=== PATIENT | female | born 1940 | race Hispanic/Latino ===

== ENCOUNTER 2018-01-03 14:45 | Observation (INO) | payer MEDICARE ==
[~2018-01-03] VITALS: Ht 158.8 cm; Wt 54.8 kg
[2018-01-03 16:25] VITALS: BP 181/60
[2018-01-03 16:39] LABS: EOSINOPHILS % (AUTO) 0.6 % (0.0-8.0); HEMATOCRIT 37.6 % (36-48); LYMPHOCYTES % (AUTO) 18.4 % (21.0-51.0); MEAN CORPUSCULAR HEMOGLOBIN 32.5 pg (27.0-33.0); MEAN CORPUSCULAR HGB CONC 35.3 g/dL (32.0-36.0); MONOCYTES % (AUTO) 7.6 % (3.0-13.0); NEUTROPHILS % (AUTO) 72.4 % (40.0-77.0); NUCLEATED RED BLOOD CELLS 0.1 % (0.0-0.19); PLATELET COUNT (AUTO) 414 K/uL (130-400); RED BLOOD CELL COUNT(AUTO) 4.09 MIL/uL (4.00-5.50); RED CELL DISTRIBUTION WIDTH 13.1 % (11.0-15.5)
[2018-01-03] MEDS ORDERED: METO25TA6 PO (17:45)
[2018-01-03] MEDS ORDERED: GLAUCOMA DROPS OU (17:45)
[2018-01-03] MEDS ORDERED: LEVO50TA11 PO (17:45)
[2018-01-03] MEDS ORDERED: VALS160T29 PO (17:45)
[2018-01-03] MEDS ORDERED: AMLO5TAB2 PO (17:45)
[2018-01-03] MEDS ORDERED: AMOX1TAB16 PO (17:45)
[2018-01-03] MEDS ORDERED: CLINDAMYCIN 600 MG/D5% WATER 50 ML IV SCH (18:15)
[2018-01-03] MEDS ORDERED: DEXTROSE 5 %-0.45 % NACL 1,000 ML IV SCH (18:15)
[2018-01-03] MEDS ORDERED: LACTATED RINGERS 1000ML 1,000 ML IV SCH (18:15)
[2018-01-04] VITALS (24 sets, daily range): BP systolic 111–146; BP diastolic 45–75
[2018-01-04] MEDS: CEFAZOLIN SODIUM 1 GM VIAL ONE ×2 (08:05→08:10)
[2018-01-04] MEDS ORDERED: PROPOFOL 10 MG/ML 20ML VIAL IV ONE (08:08)
[2018-01-04] MEDS ORDERED: SODIUM CHLORIDE 0.9% 1000ML 1,000 ML IV ONE (08:11)
[2018-01-04] MEDS ORDERED: FENTANYL CITRATE PF 50 MCG/1 ML 2ML VIAL ONE (08:17)
[2018-01-04] MEDS ORDERED: GLYCOPYRROLATE 0.2 MG/ML 5 ML VIAL ONE (09:14)
[2018-01-04] MEDS ORDERED: NEOSTIGMINE METHYLSULFATE 1MG/ML IV ONE (09:14)
[2018-01-04] MEDS ORDERED: IBUPROFEN 600 MG TABLET PO PRN (11:00)
[2018-01-04] MEDS ORDERED: PROMETHAZINE HCL 25 MG/ML 1ML AMPULE IM PRN ×2 (11:00→18:00)
[2018-01-04] MEDS ORDERED: DOCUSATE SODIUM 100 MG CAP PO PRN (11:00)
[2018-01-04] MEDS ORDERED: BISACODYL 10 MG SUPP.RECT RC PRN (11:00)
[2018-01-04] MEDS: INSULIN HUMULIN R 100 UNIT/ML 3ML SQ SCH ×2 (12:00→18:00)
[2018-01-04] MEDS: ACETAMINOPHEN-CODEINE 300/30MG TAB PO PRN ×2 (13:23→18:08)
[2018-01-04] MEDS ORDERED: MEPERIDINE-PF 75 MG/ML SYG IM PRN (18:00)
[2018-01-04] MEDS: SODIUM CHLORIDE 0.9% 1000ML 1,000 ML IV SCH (18:05)
[2018-01-05] MEDS: SODIUM CHLORIDE 0.9% 1000ML 1,000 ML IV SCH (01:44)
[2018-01-05 03:51] VITALS: BP 158/61
[2018-01-05] MEDS ORDERED: DOCUSATE SODIUM 100 MG CAP PO PRN (05:00)
[2018-01-05] MEDS ORDERED: IBUPROFEN 800 MG TAB PO PRN (05:00)
[2018-01-05] MEDS ORDERED: ACETAMINOPHEN-CODEINE 300/30MG TAB PO PRN (05:00)
[2018-01-05] MEDS ORDERED: BISACODYL 10 MG SUPP.RECT RC PRN (05:00)
[2018-01-05] MEDS ORDERED: HYDROCODONE/ACETAMINOPHEN 5/325 MG TAB PO PRN (05:00)
[2018-01-05] MEDS ORDERED: SIMETHICONE 80 MG TAB.CHEW PO PRN (05:00)
[2018-01-05 05:34] LABS: HEMATOCRIT 34.4 % (36-48); MEAN CORPUSCULAR HEMOGLOBIN 32.6 pg (27.0-33.0); MEAN CORPUSCULAR HGB CONC 35.4 g/dL (32.0-36.0); MEAN CORPUSCULAR VOLUME 92.2 fL (79-99); PLATELET COUNT (AUTO) 333 K/uL (130-400); RED BLOOD CELL COUNT(AUTO) 3.74 MIL/uL (4.00-5.50); RED CELL DISTRIBUTION WIDTH 13.2 % (11.0-15.5); WHITE BLOOD COUNT (AUTO) 16.1 K/uL (4.8-10.8)
[2018-01-05] MEDS: INSULIN HUMULIN R 100 UNIT/ML 3ML SQ SCH ×3 (06:00→12:00)
[2018-01-05 07:52] VITALS: BP 157/71
[2018-01-05] MEDS: SIMETHICONE 80 MG TAB.CHEW PO PRN ×2 (08:29→12:23)
[2018-01-05 11:40] VITALS: BP 150/70
[2018-01-05] MEDS ORDERED: AMLODIPINE BESYLATE 5 MG TAB PO SCH (12:00)
[2018-01-05] MEDS: ACETAMINOPHEN-CODEINE 300/30MG TAB PO PRN (12:24)
[2018-01-05 15:55] VITALS: BP 170/78
[2018-01-05] MEDS ORDERED: [UNRECOGNIZED DRUG - OTHER] OU SCH (21:00)
[2018-01-05] MEDS ORDERED: METOPROLOL TARTRATE 25 MG TAB PO SCH (21:00)
[2018-01-05] MEDS ORDERED: AMOXICILLIN/POTASSIUM CLAV 875-125 TABLET PO SCH (21:00)
[2018-01-06] MEDS ORDERED: LEVOTHYROXINE 50 MCG TABLET PO SCH (07:30)
[2018-01-06] MEDS ORDERED: LOSARTAN 100 MG TABLET PO SCH (09:00)
== END 2018-01-05 17:00 | disposition home or self-care (01) ==
LOC: EDSTATUS 14:45 → DAHIP 01-04 05:37 → WSH 01-04 10:30
PROVIDERS: ADMIT Obstetrics & Gynecology; ATTEND Obstetrics & Gynecology
DX: N84.0 Polyp of corpus uteri (principal); N95.0 Postmenopausal bleeding; N39.0 Urinary tract infection, site not specified
CPT/HCPCS: 36415 ×2; 58262; 82948 ×7; 85025; 85027; 86850; 86900; 86901; 88307; A4351; A4510; A4600; A4606 ×2; A4930; G0378 ×36; J0690; J2704; J2710; J3010; J3490; J7030; J7042

== ENCOUNTER → 2019-02-10 | Outpatient (CLI) | payer MEDICARE ==
[2019-02-09 10:50] LABS: BASOPHILS % (AUTO) 1.3 % (0.0-5.0); EOSINOPHILS % (AUTO) 1.9 % (0.0-8.0); HEMATOCRIT 37.4 % (36-48); LYMPHOCYTES % (AUTO) 22.1 % (21.0-51.0); MEAN CORPUSCULAR HEMOGLOBIN 30.3 pg (27.0-33.0); MEAN CORPUSCULAR VOLUME 91.8 fL (79-99); MONOCYTES % (AUTO) 12.4 % (3.0-13.0); NEUTROPHILS % (AUTO) 62.3 % (40.0-77.0); PLATELET COUNT (AUTO) 266 K/uL (130-400); RED BLOOD CELL COUNT(AUTO) 4.08 MIL/uL (4.00-5.50); RED CELL DISTRIBUTION WIDTH 14.7 % (11.0-15.5); WHITE BLOOD COUNT (AUTO) 9.3 K/uL (4.8-10.8)
[2019-02-09 10:56] LABS: CREATININE 0.6 mg/dL (0.5-1.5); POTASSIUM 4.2 mmol/L (3.5-5.1)
[~2019-02-10] MED LIST: AMLO5TAB9 PO; AMOX1TAB16 PO; GLAUCOMA DROPS OU; IOHEXOL 350 MG/ML 100ML INFUS..BTL IV ONE; LEVO50TA11 PO; METO25TA6 PO; VALS160T29 PO
== END | disposition home or self-care (01) ==
LOC: RAH 09:27
PROVIDERS: ATTEND Urology
DX: N39.0 Urinary tract infection, site not specified (principal); N32.89 Other specified disorders of bladder
CPT/HCPCS: 36415; 74400; 80048; 85025; Q9967

== ENCOUNTER 2019-07-02 14:33 | Emergency (ER) | payer MEDICARE ==
[~2019-07-02 14:33] MED LIST changes: -IOHEXOL 350 MG/ML 100ML INFUS..BTL IV ONE
[2019-07-02] MEDS ORDERED: HYDROCODONE/ACETAMINOPHEN 5/325 MG TAB ONE (15:21)
== END 2019-07-02 18:05 | disposition home or self-care (01) ==
LOC: EDH 14:33
DX: S62.395A Other fracture of fourth metacarpal bone, left hand, initial encounter for closed fracture (principal); S62.397A Other fracture of fifth metacarpal bone, left hand, initial encounter for closed fracture; S09.8XXA Other specified injuries of head, initial encounter; S80.12XA Contusion of left lower leg, initial encounter; J18.9 Pneumonia, unspecified organism; I10 Essential (primary) hypertension; E07.9 Disorder of thyroid, unspecified; Z87.891 Personal history of nicotine dependence; W18.39XA Other fall on same level, initial encounter; Y93.01 Activity, walking, marching and hiking; Y92.89 Other specified places as the place of occurrence of the external cause; Y99.8 Other external cause status
CPT/HCPCS: 70450; 71045; 72170; 73070; 73090; 73130; 73552; 73562; 73590; 73610

== ENCOUNTER → 2019-07-17 | Outpatient (CLI) | payer MEDICARE ==
[2019-07-17 15:34] LABS: CREATININE 0.7 mg/dL (0.5-1.5)
== END | disposition home or self-care (01) ==
LOC: LAB 14:48
PROVIDERS: ATTEND Family Medicine
DX: R22.0 Localized swelling, mass and lump, head (principal)
CPT/HCPCS: 36415; 82565; 84520

== ENCOUNTER → 2019-07-20 | Outpatient (CLI) | payer MEDICARE ==
[~2019-07-20] MED LIST changes: +GADODIAMIDE 10 MMOL/20 ML VIAL IV ONE
== END | disposition home or self-care (01) ==
LOC: RAH 08:27
PROVIDERS: ATTEND Family Medicine
DX: G93.89 Other specified disorders of brain (principal)
CPT/HCPCS: 70553; A9579

== ENCOUNTER → 2020-03-05 | Outpatient (CLI) | payer OTHER, MEDICARE | END | disposition home or self-care (01) | LOC: RAH 12:42 | PROVIDERS: ATTEND Family Medicine | DX: I67.82 Cerebral ischemia (principal); G93.9 Disorder of brain, unspecified; D32.9 Benign neoplasm of meninges, unspecified ==

== ENCOUNTER → 2020-07-02 | Outpatient (CLI) | payer OTHER, MEDICARE ==
[~2020-07-02] MED LIST changes: -GADODIAMIDE 10 MMOL/20 ML VIAL IV ONE
== END | disposition home or self-care (01) ==
LOC: RAH 13:26
PROVIDERS: ATTEND Urology
DX: N28.1 Cyst of kidney, acquired (principal); R31.29 Other microscopic hematuria
CPT/HCPCS: 76770